=== PATIENT | male | born 1995 | race Caucasian/White ===

== ENCOUNTER 2019-07-02 22:20 | Emergency (ER) | payer OTHER ==
[2019-07-02] MEDS ORDERED: Morphine 4 MG/ML VIAL ONE (23:03)
[2019-07-02] MEDS ORDERED: Promethazine HCl 25 MG/ML VIAL ONE (23:03)
--- NOTE | 2019-07-02 23:48 | RAD ---
XR Elbow Rt 2 View INDICATION: Right elbow injury from playing soccer FINDINGS: Bones: No acute fracture or subluxation is evident.. Joints: No joint capsular distention. Radiocapitellar alignment appears within normal limits. Soft tissues: No radiopaque foreign body is evident. IMPRESSION: No acute osseous abnormality.
--- NOTE | 2019-07-02 23:49 | RAD ---
XR Humerus Rt 2 View STANDARD INDICATION: Right arm injury COMPARISON: None. FINDINGS: Bones: No acute fracture or subluxation is demonstrated. Soft tissues: Within normal limits. Joints: There is anterior inferior dislocation of the right glenohumeral joint. IMPRESSION: Right anterior inferior dislocation of the glenohumeral joint.
--- NOTE | 2019-07-02 23:50 | RAD ---
XR Shoulder Rt 2 View: 07/02/2019 11:12 PM CLINICAL INDICATION: Shoulder injury while playing soccer. COMPARISON: None. FINDINGS: Bones: No acute fracture. Glenohumeral joint: Anterior inferior dislocation AC joint: Normal alignment. Visualized lung: Clear. Soft tissues: Within normal limits. IMPRESSION: Anterior inferior dislocation of the right glenohumeral joint.
[2019-07-03] MEDS ORDERED: Ketorolac Tromethamine 30 MG/ML VIAL ONE (00:19)
--- NOTE | 2019-07-03 07:37 | RAD ---
Exam:Right shoulder 3 views HISTORY: Status post reduction COMPARISON: None FINDINGS: Glenohumeral joint space is preserved. Interval reduction. No fracture. IMPRESSION: No fracture. Interval reduction.
== END 2019-07-03 00:54 | disposition home or self-care (01) ==
LOC: ERS 22:20
DX: S43.014A Anterior dislocation of right humerus, initial encounter (principal); S43.034A Inferior dislocation of right humerus, initial encounter; W18.30XA Fall on same level, unspecified, initial encounter; Y93.66 Activity, soccer; Z87.891 Personal history of nicotine dependence
CPT/HCPCS: 23650; 96365; 96366; 96375; J1885; J2270; J2550